=== PATIENT | female | born 1995 | race Caucasian/White ===

== ENCOUNTER 2018-11-22 22:17 | Emergency (ER) | payer OTHER ==
[2018-11-22] MEDS: DIPH,PERTUSS(ACELL),TET VAC/PF 0.5 ML DISP.SYRIN IM ONE (22:50)
--- NOTE | 2018-11-22 22:55 | ED Physician Documentation ---
Hand Injury - HISTORIAN Historian: patient, friend - HPI Stated Complaint: "I cut my finger" Chief Complaint: Hand Injury Additional Information: SLICE AVULSION LAC DISTAL TIP LT MIDDLE FINGER APPROX 7MM--DOES NOT INVOLVE THE NAIL Onset: just prior to arrival Where: home Severity: mild Context: laceration Location of Injury: L hand, L fingers Modifying Factors: pain on movement (AND TOUCH) Further Comments: no (PT ANXIOOUS HAS POTS SYNDROME BP DOWN PT IN [place]) - ROS CONST: no problems CVS/RESP: none LNMP: denies: EYES/ENT: none MS/SKIN/LYMPH: none - PAST HX Past History: Rt handed, other (POTS ANXIETY DEPRESSION) Immunizations: denies: UTD Allergies/Adverse Reactions: Allergies Allergy/AdvReac Type Severity Reaction Status Date / Time prochlorperazine Allergy Severe Tardyskinsi Verified 11/22/18 22:45 [From Compazine] a Home Medications: Ambulatory Orders Medication Instructions Recorded Bupropion HCl [Bupropion Xl] 150 mg PO DAILY 11/22/18 Desog-E.estradiol/E.estradiol 1 tab PO HS 11/22/18 [Viorele 28 Day Tablet] Venlafaxine HCl [Venlafaxine HCl 150 mg PO DAILY 11/22/18 ER] - SOCIAL HX Smoking History: non-smoker Alcohol Use: occasionally Drug Use: none - FAMILY HX Family History: no significant history - VITAL SIGNS Vital Signs: Vital Signs Temp Pulse Resp BP Pulse Ox 97.4 F L 68 18 120/69 97 11/22/18 22:32 11/22/18 22:32 11/22/18 22:32 11/22/18 22:32 11/22/18 22:32 - REVIEWED ASSESSMENTS Nursing Assessment Reviewed: Yes Vitals Reviewed: Yes Procedures Wound Location: upper extremity Wound's Depth, Shape: other (SLICE AVULSION FINGER TIP MISSING IN ACCIDENT) Wound Explored: clean Betadine Prep?: Yes Wound Repaired With: Dermabond Sterile Dressing Applied?: Yes ED Results Lab/Radiology - Orders Orders: ED Orders Category Date Time Status Clean with Betadine .PRN Care 11/22/18 22:38 Active Skin Adhesive NOW Care 11/22/18 22:45 Ordered Diph,Pertuss(Acell),Tet Vac/Pf [Adacel] Med 11/22/18 22:40 Discontinued 0.5 ml IM .ONCE ONE Hand Injury Physical Exam - Exam General Appearance: mild distress, anxious. No: hyperventilating Hand: nml inspection (EXCEPT ANXIETY SL HYPOTENSION-GOOD RADIALL PULSE AND NAIL B LANCH) Neuro: sensation nml, motor nml. No: digital nerve deficit, decreased fine touch Vascular: no vascular compromise. No: pallor, cool skin, abnml cap refill Tendons: tendon function nml. No: tendon visualized Forearm/Elbow/Arm: uninjured above wrist Head/ENT: nml inspection Neck/Back: nml inspection Resp/CVS: chest non-tender, breath sounds nml, heart sounds nml, lungs clear, reg. rate & rhythm, tenderness Abdomen: non-tender Discharge Clincal Impression: LT MID FINGERTIP LACERATION Referrals: Primary Doctor,No [Primary Care Provider] - 2 Days Comments: TET IMMUN Condition: Good Disposition: 01 HOME, SELF-CARE Decision to Admit: NO Decision Time: 23:02
[2018-11-22 23:09] VITALS: BP 114/90
== END 2018-11-22 23:08 | disposition home or self-care (01) ==
LOC: ED 22:17
DX: S61.219A Laceration without foreign body of unspecified finger without damage to nail, initial encounter (principal); W26.9XXA Contact with unspecified sharp object(s), initial encounter
CPT/HCPCS: 12001; 90715; 96372; 99283; 99284